=== PATIENT | male | born 1955 | race Caucasian/White ===

== ENCOUNTER 2023-02-06 20:01 | Emergency (ER) | payer OTHER, SELFPAY ==
--- NOTE | ~2023-02-06 | CT_ITS ---
EXAMINATION: CT cervical spine wo con DATE: 02/06/2023 20:41 INDICATION: Status post fall. Seizure. TECHNIQUE: Computed tomography (CT) of the cervical spine was performed without intravenous contrast. The dose-length product was 262 mGy-cm. There is diffuse idiopathic skeletal hyperostosis (DISH) of the cervical spine. COMPARISON: None FINDINGS: There are linear radiodensities of the left upper lobe which may represent atelectasis/scar ring or developing pneumonia. There is atherosclerosis of the carotid arteries. There is significant loss of disc height at all cervical spine levels. There is degenerative anterolisthesis at C2-3 with retrolisthesis at C3-4 and C4-5. There is multilevel endplate degenerative change. There is advanced multilevel uncinate hypertrophy. Mild levoscoliosis of the cervical spine. No significant paraspinal soft tissue abnormality. No acute fracture or traumatic malalignment. IMPRESSION: 1. No acute abnormality of the cervical spine. 2: Severe cervical spondylosis. 3: Linear infiltrates of the left upper lobe which may represent atelectasis/scarring or atypical pne umonia. Reviewed, dictated and finalized at location A. IMPRESSION: 1. No acute abnormality of the cervical spine. 2: Severe cervical spondylosis. 3: Linear infiltrates of the left upper lobe which may represent atelectasis/sc arring or atypical pneumonia.
--- NOTE | ~2023-02-06 | CT_ITS ---
EXAMINATION: CT brain wo con DATE: 02/06/2023 20:41 INDICATION: Seizure. Altered mental status. TECHNIQUE: Computed tomography (CT) of the head was performed without intravenous contrast. The dose- length product was 681.00 mGy-cm. Automated exposure control and iterative reconstruction technique w ere employed. COMPARISON: None FINDINGS: Generalized atrophy. Chronic right frontal lobe infarct infarction. There are scattered mod erate periventricular and subcortical white matter changes, most likely related to small vessel ische bertha disease (microangiopathy). There is intracranial atherosclerosis. No acute intracranial infarctio n, hemorrhage, mass or mass effect. Paranasal sinuses and mastoids are pneumatized. IMPRESSION: 1. No acute intracranial abnormality. 2: Chronic right frontal lobe infarction. 3: Chronic age-related findings. Reviewed, dictated and finalized at location A.
--- NOTE | ~2023-02-06 | XR_ITS ---
XR chest 1V portable 02/06/2023 21:09 Indication: Seizure. Fall. Altered mental status. Procedure: AP portable chest Comparison: No prior studies for comparison. Findings: Heart size normal. There are linear infiltrates of the left upper and mid lung. Small left pleural effusion. There are healed left rib fractures. Right lung clear. There are severe degenerativ e changes of the glenohumeral joints. There are healed right rib fractures. Impression: 1: Linear infiltrates of the left lung peripherally, most likely atelectasis/scarring. Atypical pneum onia is less favored. Reviewed, dictated and finalized at location A. Impression: 1: Linear infiltrates of the left lung peripherally, most likely atelectasis/sc arring. Atypical pneumonia is less favored.
[2023-02-06 20:02] VITALS: BP 159/96; PULSE 89; RESP 19; TEMP 36.5; O2SAT 98
--- NOTE | 2023-02-06 20:24 | ED.SEIZURE ---
HPI - Seizure General Chief Complaint: Seizure Stated Complaint: seizure Time Seen by Provider: 02/06/23 20:16 History of Present Illness HPI Narrative: Patient with history of Wernicke's encephalopathy, alcohol use disorder, seizures, presents after he had a seizure at his facility, fell and hit his head. He is currently confused and A&O x1. Review of Systems Review of Systems: ROS unobtainable: Yes unobtainable due to medical condition and unobtainable due to mental status PMFSH Past Medical History Medical History (Updated 02/06/23 @ 22:17 by Marce Garcia MD) Alcohol use disorder in remission Seizure Wernicke's encephalopathy Exam Narrative: EXAMINATION OF ORGAN SYSTEMS/BODY AREAS: Constitutional: Vital signs per nursing GENERAL:[No acute distress, non-toxic appearing.] HEAD: Normal with no signs of head trauma. EYES: EOMI, conjunctiva normal, PERRL ENT: 2.5 cm laceration to right forehead LUNGS: Nonlabored breathing. HEART: [Regular rate and rhythm] ABD: [Soft], [nontender to palpation] EXT: No obvious signs of deformity/injury SKIN: Laceration to right forehead NEURO: [Alert. Draws back all extremities to painful stimuli] Course Vital Signs Vital signs: Vital Signs Temperature 97.7 F 02/06/23 20:02 Pulse Rate 89 02/06/23 20:02 Respiratory Rate 19 02/06/23 20:02 Blood Pressure 159/96 H 02/06/23 20:02 Pulse Oximetry 98 02/06/23 20:02 Oxygen Delivery Room Air 02/06/23 20:02 Temperature 97.7 F 02/06/23 20:02 Pulse Rate 89 02/06/23 20:02 Respiratory Rate 19 02/06/23 20:02 Blood Pressure 159/96 H 02/06/23 20:02 Pulse Oximetry 98 02/06/23 20:02 Oxygen Delivery Room Air 02/06/23 20:02 Procedures Laceration Laceration 1: Date: 02/06/23 Time: 22:12 Site: face Side (If applicable): right Size (cm): 2.5 Description: linear Depth: simple, single layer Local Anesthetic: lidocaine 1% Amount of anesthesia used (mL): 2 Pre-repair: wound explored and irrigated ====== Skin Level ====== Skin layer closed with: vicryl Size (cm): 5-0 Number of sutures: 3 Technique: simple, interrupted ====== Subcutaneous Layer ====== ====== Muscle Layer ====== ====== Tendon Layer ====== Nerve Block Nerve Block 1: Nerve block date: 02/06/23 Nerve block time: 22:12 Local Anesthetic: lidocaine 1% Amount of anesthesia used (mL): 2 Side: right Nerve Blocks: other (supraorbital block) Procedure Successful: Yes Patient Tolerated Procedure: well and no complications Complications: none MDM - Seizure MDM Narrative Medical decision making narrative: 67-year-old presenting with breakthrough seizures occurring today. Accu-Chek is normal. Seizure precautions are initiated. CT head and C-spine obtained given trauma, these are negative for acute abnormality. Laceration is cleaned here, irrigated, nerve block performed and closed with absorbable sutures (see proc note) Patient now back to baseline, stating he wants to go home. Answering questions. He has remained stable in the emergency department for a period of observation without any recurrence of the symptoms and was discharged in stable condition with return precautions and outpatient follow-up. Lab Data 02/06/23 20:52 02/06/23 20:52 Labs: Lab Results 02/06/23 02/06/23 Range/Units 20:52 21:38 WBC 6.9 (4.5-10.0) K/mm3 RBC 3.51 L (4.6-6.20) M/mm3 Hgb 11.6 L (14.0-18.0) g/dL Hct 34.3 L (42.0-52.0) % MCV 97.7 (80-100) fl MCH 33.0 (26-34) pg MCHC 33.8 (32-36) g/dl RDW 12.4 (11.5-14.5) % Plt Count 327 (150-375) k/mm3 MPV 9.2 (7.4-10.4) fl Immature Gran % (Auto) 0.3 (0-0.5) % Neut % (Auto) 62.7 (45.5-73.1) % Lymph % (Auto) 23.7 (18.3-44.2) % [place] % (Auto) 10.0 H (2.6-8.5) % E
[2023-02-06 21:09] LABS: Basophils Absolute Auto 0.1 K/mm3 (0.0-0.1); Basophils Percent Auto 0.7 % (0.2-1.2); Eosinophils Absolute Auto 0.2 K/mm3 (0-0.3); Eosinophils Percent Auto 2.6 % (0-4.4); Hematocrit 34.3 % (42.0-52.0); Hemoglobin 11.6 g/dL (14.0-18.0); Immature Granulocyte Absolute 0.02 K/mm3 (0.00-0.031); Immature Granulocyte Percent A 0.3 % (0-0.5); Immature Platelet Fraction Pct 2.8 % (0.9-11.2); Lymphocytes Absolute Auto 1.64 K/mm3 (0.9-3.2); Lymphocytes Percent Auto 23.7 % (18.3-44.2); Mean Corpuscular HGB Conc 33.8 g/dl (32-36); Mean Corpuscular Volume 97.7 fl (80-100); Mean Platelet Volume 9.2 fl (7.4-10.4); Monocytes Absolute Auto 0.7 K/mm3 (0.1-0.6); Neutrophils Absolute Auto 4.4 K/mm3 (1.3-6.7); Neutrophils Percent Auto 62.7 % (45.5-73.1); Platelet Count Result 327 k/mm3 (150-375); Red Blood Count 3.51 M/mm3 (4.6-6.20); Red Cell Distribution Width 12.4 % (11.5-14.5); White Blood Count 6.9 K/mm3 (4.5-10.0)
[2023-02-06 21:15] LABS: Alanine Aminotransferase 44 U/L (6-50); Albumin Level 4.3 g/dL (3.5-5.1); Alkaline Phosphatase 64 U/L (38-126); Anion Gap 8 mmol/L (8-16); Aspartate Amino Transferase 53 U/L (17-59); Bilirubin,Total 0.7 mg/dL (0.2-1.3); Blood Urea Nitrogen 13 mg/dL (9-20); Calcium 8.6 mg/dL (8.4-10.2); Carbon Dioxide 27 mmol/L (22-30); Chloride 103 mmol/L (98-107); Estimated Glomerular Filt Rate 32; Ethanol < 10 mg/dL (<10); Glucose 121 mg/dL (65-110); Potassium 3.9 mmol/L (3.4-5.0); Sodium 138 mmol/L (137-145)
[2023-02-06 21:17] LABS: INR 1.1; Prothrombin Time 14.7 Seconds (11.1-14.7)
[2023-02-06 21:18] LABS: Partial Thromboplastin Time 22.8 SECONDS (22.3-36.8)
[2023-02-06 21:52] LABS: Appearance Urine Clear (Clear); Bacteria Urine None Seen /hpf; Bilirubin Urine Negative (Negative); Blood Urine 2+ (Negative); Color Urine Yellow (Yellow); Glucose Urine UA Negative (Negative); Ketones Urine Negative (Negative); Leukocyte Esterase Ur 1+ LEU/UL (Negative); Nitrate Urine Negative (Negative); Protein Urine Trace mg/dL (Negative); RBC Urine 21-50 /hpf (0-2); Specific Grav Ur 1.017 (1.001-1.035); Squamous Epithelial Cell Urine None seen /hpf (Few); WBC Urine 21-50 /hpf; pH Urine 5.5 (5.0-9.0)
[2023-02-06 21:57] LABS: Add Urine Microscopic? YES
[2023-02-06 22:01] LABS: Amphetamine Screen Urine Negative (Negative); Barbiturate Screen Urine Negative (Negative); Benzodiazepines Screen Urine Negative (Negative); Cannabinoid Screen Urine Positive (Negative); Cocaine Screen Urine Negative (Negative); Methadone Screen Urine Negative (Negative); Opiate Screen Urine Negative (Negative); Phencyclidine Screen Urine Negative (Negative)
[2023-02-06] MEDS: LIDOCAINE HCL 1% LOCAL INJ 10 ML VIAL (22:18)
== END 2023-02-06 23:00 ==
PROVIDERS: Emergency Provider Emergency Medicine; PCP Internal Medicine
DX: R56.9 Unspecified convulsions (principal); S01.81XA Laceration without foreign body of other part of head, initial encounter; E51.2 Wernicke's encephalopathy; W18.39XA Other fall on same level, initial encounter
CPT/HCPCS: 12011; 36415; 70450; 71045; 72125; 80053; 80307; 81001; 85025; 85055; 85610; 85730; 87077; 87086; 87088; 99284

== ENCOUNTER 2024-11-13 12:45 | Emergency (ER) | payer MEDICAID, SELFPAY ==
--- NOTE | ~2024-11-13 | CT_ITS ---
EXAMINATION: CT chest abdomen pelvis wo con DATE: 11/13/2024 16:28 INDICATION: Evaluation for loculated pneumothorax vs hernia . TECHNIQUE: Computed tomography (CT) of the chest, abdomen, and pelvis was performed without intraveno us contrast. Automated exposure control and iterative reconstruction technique were employed. The dos e-length product was 540.71 mGy-cm. COMPARISON: X-ray chest, same date FINDINGS: CHEST: Thoracic aorta: No significant dilation. Mild atherosclerotic calcification. Lung parenchyma and airways: Calcified left upper lobe granuloma. Scarring in the left upper and lowe r lobes. Patent airways. Thoracic inlet, axillae and chest wall: Subcentimeter calcified right thyroid nodule which requires n o additional evaluation at this time. No soft tissue mass. No axillary lymphadenopathy. Mediastinum: Enlarged superior mediastinal lymph node. Calcified right hilar nodes. Heart and pericardium: Mitral and aortic valve calcification. Coronary artery calcifications: Moderate. Pleura: Mild left pleural thickening. Thoracic bones: No acute osseous finding in the chest. Old bilateral rib fractures. Severe degenerati ve change in the shoulders. ABDOMEN/PELVIS: Liver: Nodular liver border Biliary/Gallbladder: Gallbladder is normal. No bile duct dilation. Pancreas: No mass or duct dilation. Spleen: Normal. Adrenals:No mass. Kidneys: No suspicious mass, obstructing stone, or hydronephrosis. Punctate nonobstructing left renal calcifications. GI tract: No small or large bowel dilation. Normal appendix. Mesentery/Peritoneum: No ascites, mass, or free air. Retroperitoneum: No mass Atherosclerotic calcifications of intra-abdominal arterial vessels. Pelvis: Moderate bladder wall thickening. Prostatomegaly. Soft Tissues: Small uncomplicated fat-containing umbilical and bilateral inguinal hernias Abdominopelvic bones: No acute osseous finding in the abdomen/pelvis. Degenerative changes in the sp ine, hips, and pubic symphysis. Partial L5 sacralization on the left. IMPRESSION: No CT evidence of loculated pneumothorax, bullae, or diaphragmatic hernia. Mild left pleural and parenchymal scarring. Superior mediastinal lymphadenopathy. Cirrhotic liver changes. Moderate urinary bladder wall thickening may be secondary to cystitis or outlet obstruction from pros tatomegaly. Reviewed, dictated and finalized at location K. IMPRESSION: No CT evidence of loculated pneumothorax, bullae, or diaphragmatic hernia. Mild left pleural and parenchymal scarring. Superior mediastinal lymphadenopathy. Cirrhotic liver changes. Moderate urinary bladder wall thickening may be secondary to cystitis or outlet obstruction from prostatomegaly.
--- NOTE | ~2024-11-13 | CT_ITS ---
EXAMINATION: CT brain wo con DATE: 11/13/2024 13:17 INDICATION: Altered mental status TECHNIQUE: Computed tomography (CT) of the head was performed without intravenous contrast. Sagittal and coronal reconstructions were performed. The mA was adjusted according to patient size. Iterative reconstruction technique was employed. The dose-length product was 605.33 mGy-cm. COMPARISON: head CT dated 02/06/23 FINDINGS: No acute intracranial hemorrhage, acute infarction or abnormal extra axial fluid collection. Stable a ppearance of moderate scattered white matter hypoattenuation most prominent in the right frontal lobe consistent with chronic small vessel ischemic disease. Symmetric prominence of the sulci consistent with mild age-appropriate diffuse cerebral volume loss. Ventricles are normal and symmetric. No mass/ mass effect. Mild mucosal thickening in the right sphenoid sinus. The orbits and mastoid air cells ar e normal. Intracranial calcified cerebral atherosclerosis is noted. IMPRESSION: 1. Age-related changes including mild diffuse volume loss and moderate scattered white matter hypoatt enuation consistent with chronic small vessel ischemic disease. No acute intracranial process. Reviewed, dictated and finalized at location B. IMPRESSION: 1. Age-related changes including mild diffuse volume loss and moderate scattere d white matter hypoattenuation consistent with chronic small vessel ischemic di sease. No acute intracranial process.
--- NOTE | ~2024-11-13 | XR_ITS ---
XR chest 2V Ordering provider: Cate Chandler APRN History: 69 years Male with . cough . Comparison: February 06, 2023 FINDINGS: MEDIASTINUM: The cardiac silhouette is not enlarged. LUNGS: No infiltrates. Lucency is seen in the left costophrenic angle which may be loculated pneumoth orax versus emphysematous bulla although this likely.. Air-fluid level is also possible with possible effusion. The lateral view shows lucency anteriorly which may represent a bowel herniation. CT evalu ation advised. OTHER: No free air under the diaphragm. Degenerative changes of the spine. Dextroscoliosis. 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 IMPRESSION: Lucency in the left costophrenic angle which may be loculated pneumothorax versus herniated bowel jer arianna emphysematous bulla. Lucency is seen anteriorly in the lateral view which may represent a herniat ed bowel loop. CT evaluation advised. Reviewed, dictated and finalized at location A. IMPRESSION: Lucency in the left costophrenic angle which may be loculated pneumothorax vers us herniated bowel versus emphysematous bulla. Lucency is seen anteriorly in th e lateral view which may represent a herniated bowel loop. CT evaluation advise g[place]
[2024-11-13 12:58] VITALS: BP 122/68; PULSE 71; RESP 20; TEMP 36.4; O2SAT 99
--- NOTE | 2024-11-13 13:04 | ECG_ITS ---
Test Date: 2024-11-13 13:53:05 Measurements Intervals [place] Rate: 62 P: 78 MT: 169 QRS: -55 QRSD: 91 T: 59 QT: 384 QTc: 391 Interpretive Statements SINUS RHYTHM LEFT ANTERIOR FASCICULAR BLOCK [QRS AXIS <= -45, QR IN I, RS IN II] POSSIBLE ANTERIOR MYOCARDIAL INFARCTION , OF INDETERMINATE AGE [30 ms Q WAVE IN V3/V4, OR R < 0.2 mV IN V4] No previous ECG available for comparison Electronically Signed On 11-14-2024 15:37:44 CDT by Thang Santana M.D.
--- NOTE | 2024-11-13 13:04 | ED_ITS ---
HPI - Altered Mental Status General Chief Complaint: Altered Mental Status <Cate Chandler APRN - Last Filed: 11/13/24 13:07> Stated Complaint: ams/slow to respond after smoking marijuana <Cate Chandler APRN - Last Filed: 11/13/24 13:07> Time Seen by Provider: 11/13/24 12:55 <Cate Chnadler APRN - Last Filed: 11/13/24 13:07> Focused HPI: Patient is 69-year-old male who presents to the ER with altered mental status following marijuana use. He is a poor historian is unable to provide a strong history. Patient does endorse a history of hypertension. He denies any chest pain, abdominal pain, neck pain, headache, but does not endorse a pain in my rear. Patient was unable to explain whether not this was a chronic issue or spoken in jest. GENERAL: Well-appearing, well-nourished, and in no acute distress. HEAD: Normocephalic, atraumatic. CHEST: Clear to auscultation. ?No respiratory distress. HEART: Regular rate and rhythm.? NEURO: ?Alert and oriented x3. Patient screened in triage and initial orders placed.? ?Additional care and disposition to be based upon?diagnostic testing and treatment. <Cate Chandler APRN - Last Filed: 11/13/24 13:07> History of Present Illness HPI narrative: I agree with the above HPI <Jermaine Perales MD - Last Filed: 11/13/24 21:41> Related Data Allergies/Adverse Reactions: Allergies Allergy/AdvReac Type Severity Reaction Status Date / Time No Known Allergies Allergy Verified 11/13/24 17:06 <Cate Chandler APRN - Last Filed: 11/13/24 13:07> Review of Systems 2 Review of Systems: All systems reviewed & are unremarkable except as noted in HPI and below <Jermaine Perales MD - Last Filed: 11/13/24 21:41> PMFSH Past Medical History Medical History: Medical History (Updated 11/13/24 @ 16:57 by Jermaine Perales MD) Seizure Wernicke's encephalopathy Alcohol use disorder in remission <Cate Chandler APRN - Last Filed: 11/13/24 13:07> Exam 2 Narrative: APPEARANCE: Well appearing, no pain, no distress, well-nourished. HEAD: normocephalic, atraumatic. EYES: PERRLA/EOMI, conjunctivae clear. NOSE: Normal no drainage EARS:TMS clear with good light reflex. THROAT: Pharynx clear, no exudate. NECK: Supple. No adenopathy, no masses. RESPIRATORY: Airway patent, respirations nonlabored. Clear to auscultation bilaterally, no rales, rhonchi, wheezing. CARDIOVASCULAR: Regular rate and rhythm without murmurs rubs or gallops. ABDOMINAL: Soft, nontender, nondistended, normal bowel sounds MUSCULOSKELETAL: Moves all extremities. Strength/ROM intact, No edema, No calf tenderness. NEURO: Alert. Cranial nerves II through XII intact. Good gait. Good coordination SKIN: Warm, dry. Normal Color <Jermaine Perales MD - Last Filed: 11/13/24 21:41> Course Vital Signs Vital signs: Vital Signs Temperature 97.6 F 11/13/24 12:58 Pulse Rate 71 11/13/24 12:58 Respiratory Rate 20 11/13/24 12:58 Blood Pressure 122/68 11/13/24 12:58 Pulse Oximetry 99 11/13/24 12:58 Oxygen Delivery Room Air 11/13/24 12:58 Temperature 97.6 F 11/13/24 12:58 Pulse Rate 60 11/13/24 18:05 Respiratory Rate 18 11/13/24 18:05 Blood Pressure 126/76 11/13/24 18:05 Pulse Oximetry 100 11/13/24 18:05 Oxygen Delivery Room Air 11/13/24 15:22 <Cate Chandler APRN - Last Filed: 11/13/24 13:07> Vital Signs Temperature 97.6 F 11/13/24 12:58 Pulse Rate 71 11/13/24 12:58 Respiratory Rate 20 11/13/24 12:58 Blood Pressure 122/68 11/13/24 12:58 Pulse Oximetry 99 11/13/24 12:58 Oxygen Delivery Room Air 11/13/24 12:58 Temperature 97.6 F 11/13/24 12:58 Pulse Rate 60 11/13/24 18:05 Respiratory Rate 18 11/13/24 18:05 Blood Pressure 126/76 11/13/24 18:05 Pulse Oximetry 100 11/13/24 18:05 Oxygen Delivery Room Air 11/13/24 15:22 <Jermaine Perales MD - Last Filed: 11/13/24 21:41> MDM - Altered Mental Status MDM Narrative Medical decision making narrative: 69-year-old male presented emergency department for evaluation for altered mental status. Patient did admit to smoking marijuana to the staff. Patient is currently afebrile with no leukocytosis and hemoglobin of 12.4. INR 1.1. Patient has no acute abnormalities on his CMP UA is negative for infection. Patient had chest x-ray concerning for loculated pneumothorax versus hernia. CT scan was ordered CT showed no evidence of loculated pneumothorax, bullae or diaphragmatic hernia, mild pleural and parenchymal scarring. Superior mediastinal lymphadenopathy. Cirrhotic liver changes. Moderate urinary bladder wall thickening may be secondary cystitis or outlet obstruction. UA showed no evidence of infection. Patient was updated results of his workup is comfortable return back to his care facility. Patient did admit to THC use to staff. On re-evaluation patient appears to be at his expected baseline and denies any complaints. <Jermaine Perales MD - Last Filed: 11/13/24 21:41> Differential Diagnosis Differential diagnosis: Likely alcoholic intoxication, altered mental status, delirium, dementia, hypoglycemia, hyponatremia and subarachnoid hemorrhage <Jermaine Perales MD - Last Filed: 11/13/24 21:41> Lab Data Attestation: I reviewed the patient's lab results. <Jermaine Perales MD - Last Filed: 11/13/24 21:41> Result diagrams: 11/13/24 13:44 11/13/24 14:24 <Cate Chandler APRN - Last Filed: 11/13/24 13:07> Labs: Lab Results 11/13/24 11/13/24 11/13/24 Range/Units 13:43 13:44 14:12 WBC 6.5 (4.5-10.0) K/mm3 RBC 3.75 L (4.6-6.20) M/mm3 Hgb 12.4 L (14.0-18.0) g/dL Hct 36.9 L (42.0-52.0) % MCV 98.4 (80-100) fl MCH 33.1 (26-34) pg MCHC 33.6 (32-36) g/dl RDW 12.5 (11.5-14.5) % Plt Count 370 (150-375) k/mm3 MPV 9.1 (7.4-10.4) fl Immature Gran % (Auto) 0.5 (0-0.5) % Neut % (Auto) 66.7 (45.5-73.1) % Lymph % (Auto) 21.8 (18.3-44.2) % [place] % (Auto) 8.2 (2.6-8.5) % Eos % (Auto) 1.9 (0-4.4) % Baso % (Auto) 0.9 (0.2-1.2) % Lymph # (Auto) 1.41 (0.9-3.2) K/mm3 [place] # (Auto) 0.5 (0.1-0.6) K/mm3 Eos # (Auto) 0.1 (0-0.3) K/mm3 Baso # (Auto) 0.1 (0.0-0.1) K/mm3 Abs Immat Gran (auto) 0.03 (0.00-0.031) K/mm3 Absolute Neuts (auto) 4.3 (1.3-6.7) K/mm3 Absolute Nucleated RBC 0.000 (0.0-0.012) K/mm3 Nucleated RBC % 0.0 (0.0-0.2) % PT 14.4 (11.1-14.7) Seconds INR 1.1 APTT 30.6 (22.3-36.8) Seconds Sodium (137-145) mmol/L Potassium (3.4-5.0) mmol/L Chloride (98-107) mmol/L Carbon Dioxide (22-30) mmol/L Anion Gap (4-12) mmol/L BUN (9-20) mg/dL Creatinine (0.7-1.3) mg/dL Estim Creat Clear Calc ml/min Estimated GFR (59 - ) Glucose (65-110) mg/dL POC Capillary Glucose 114 H (65-105) mg/dl Calcium (8.4-10.2) mg/dL Total Bilirubin (0.2-1.3) mg/dL AST (17-59) U/L ALT (6-50) U/L Alkaline Phosphatase (38-126) U/L Troponin I (0.000-0.034) ng/mL Total Protein (6.3-8.2) g/dL Albumin (3.5-5.1) g/dL TSH (0.465-4.680) uIU/mL Urine Color Yellow (Yellow) Urine Appearance Clear (Clear) Urine pH 7.0 (5.0-9.0) Ur Specific [place] 1.013 (1.001-1.035) Urine Protein Negative (Negative) mg/dL Urine Glucose (UA) Negative (Negative) mg/dL Urine Ketones Negative (Negative) mg/dL Ur Blood (Man) Negative (Negative) Urine Nitrate Negative (Negative) Urine Bilirubin Negative (Negative) Urine Urobilinogen 1.0 (<2.0) mg/dL Leukocyte Esterase Rfl Negative (Negative) PEPITO/UL 03/24/25 Range/Units 14:24 WBC (4.5-10.0) K/mm3 RBC (4.6-6.20) M/mm3 Hgb (14.0-18.0) g/dL Hct (42.0-52.0) % MCV (80-100) fl MCH (26-34) pg MCHC (32-36) g/dl RDW (11.5-14.5) % Plt Count (150-375) k/mm3 MPV (7.4-10.4) fl Immature Gran % (Auto) (0-0.5) % Neut % (Auto) (45.5-73.1) % Lymph % (Auto) (18.3-44.2) % [place] % (Auto) (2.6-8.5) % Eos % (Auto) (0-4.4) % Baso % (Auto) (0.2-1.2) % Lymph # (Auto) (0.9-3.2) K/mm3 [place] # (Auto) (0.1-0.6) K/mm3 Eos # (Auto) (0-0.3) K/mm3 Baso # (Auto) (0.0-0.1) K/mm3 Abs Immat Gran (auto) (0.00-0.031) K/mm3 Absolute Neuts (auto) (1.3-6.7) K/mm3 Absolute Nucleated RBC (0.0-0.012) K/mm3 Nucleated RBC % (0.0-0.2) % PT (11.1-14.7) Seconds INR APTT (22.3-36.8) Seconds Sodium 143 (137-145) mmol/L Potassium 4.1 (3.4-5.0) mmol/L Chloride 106 (98-107) mmol/L Carbon Dioxide 24 (22-30) mmol/L Anion Gap 13 H (4-12) mmol/L BUN 16 (9-20) mg/dL Creatinine 1.48 H (0.7-1.3) mg/dL Estim Creat Clear Calc 40 ml/min Estimated GFR 47 L (59 - ) Glucose 90 (65-110) mg/dL POC Capillary Glucose (65-105) mg/dl Calcium 9.8 (8.4-10.2) mg/dL Total Bilirubin 0.6 (0.2-1.3) mg/dL AST 60 H (17-59) U/L ALT 67 H (6-50) U/L Alkaline Phosphatase 89 (38-126) U/L Troponin I < 0.012 (0.000-0.034) ng/mL Total Protein 9.0 H (6.3-8.2) g/dL Albumin 4.9 (3.5-5.1) g/dL TSH 1.320 (0.465-4.680) uIU/mL Urine Color (Yellow) Urine Appearance (Clear) Urine pH (5.0-9.0) Ur Specific [place] (1.001-1.035) Urine Protein (Negative) mg/dL Urine Glucose (UA) (Negative) mg/dL Urine Ketones (Negative) mg/dL Ur Blood (Man) (Negative) Urine Nitrate (Negative) Urine Bilirubin (Negative) Urine Urobilinogen (<2.0) mg/dL Leukocyte Esterase Rfl (Negative) PEPITO/UL <Cate Chandler, [employer] INSPECTOR - Last Filed: 11/13/24 13:07> Lab Results 11/13/24 11/13/24 11/13/24 Range/Units 13:43 13:44 14:12 WBC 6.5 (4.5-10.0) K/mm3 RBC 3.75 L (4.6-6.20) M/mm3 Hgb 12.4 L (14.0-18.0) g/dL Hct 36.9 L (42.0-52.0) % MCV 98.4 (80-100) fl MCH 33.1 (26-34) pg MCHC 33.6 (32-36) g/dl RDW 12.5 (11.5-14.5) % Plt Count 370 (150-375) k/mm3 MPV 9.1 (7.4-10.4) fl Immature Gran % (Auto) 0.5 (0-0.5) % Neut % (Auto) 66.7 (45.5-73.1) % Lymph % (Auto) 21.8 (18.3-44.2) % [place] % (Auto) 8.2 (2.6-8.5) % Eos % (Auto) 1.9 (0-4.4) % Baso % (Auto) 0.9 (0.2-1.2) % Lymph # (Auto) 1.41 (0.9-3.2) K/mm3 [place] # (Auto) 0.5 (0.1-0.6) K/mm3 Eos # (Auto) 0.1 (0-0.3) K/mm3 Baso # (Auto) 0.1 (0.0-0.1) K/mm3 Abs Immat Gran (auto) 0.03 (0.00-0.031) K/mm3 Absolute Neuts (auto) 4.3 (1.3-6.7) K/mm3 Absolute Nucleated RBC 0.000 (0.0-0.012) K/mm3 Nucleated RBC % 0.0 (0.0-0.2) % PT 14.4 (11.1-14.7) Seconds INR 1.1 APTT 30.6 (22.3-36.8) Seconds Sodium (137-145) mmol/L Potassium (3.4-5.0) mmol/L Chloride (98-107) mmol/L Carbon Dioxide (22-30) mmol/L Anion Gap (4-12) mmol/L BUN (9-20) mg/dL Creatinine (0.7-1.3) mg/dL Estim Creat Clear Calc ml/min Estimated GFR (59 - ) Glucose (65-110) mg/dL POC Capillary Glucose 114 H (65-105) mg/dl Calcium (8.4-10.2) mg/dL Total Bilirubin (0.2-1.3) mg/dL AST (17-59) U/L ALT (6-50) U/L Alkaline Phosphatase (38-126) U/L Troponin I (0.000-0.034) ng/mL Total Protein (6.3-8.2) g/dL Albumin (3.5-5.1) g/dL TSH (0.465-4.680) uIU/mL Urine Color Yellow (Yellow) Urine Appearance Clear (Clear) Urine pH 7.0 (5.0-9.0) Ur Specific [place] 1.013 (1.001-1.035) Urine Protein Negative (Negative) mg/dL Urine Glucose (UA) Negative (Negative) mg/dL Urine Ketones Negative (Negative) mg/dL Ur Blood (Man) Negative (Negative) Urine Nitrate Negative (Negative) Urine Bilirubin Negative (Negative) Urine Urobilinogen 1.0 (<2.0) mg/dL Leukocyte Esterase Rfl Negative (Negative) PEPITO/UL 03/24/25 Range/Units 14:24 WBC (4.5-10.0) K/mm3 RBC (4.6-6.20) M/mm3 Hgb (14.0-18.0) g/dL Hct (42.0-52.0) % MCV (80-100) fl MCH (26-34) pg MCHC (32-36) g/dl RDW (11.5-14.5) % Plt Count (150-375) k/mm3 MPV (7.4-10.4) fl Immature Gran % (Auto) (0-0.5) % Neut % (Auto) (45.5-73.1) % Lymph % (Auto) (18.3-44.2) % [place] % (Auto) (2.6-8.5) % Eos % (Auto) (0-4.4) % Baso % (Auto) (0.2-1.2) % Lymph # (Auto) (0.9-3.2) K/mm3 [place] # (Auto) (0.1-0.6) K/mm3 Eos # (Auto) (0-0.3) K/mm3 Baso # (Auto) (0.0-0.1) K/mm3 Abs Immat Gran (auto) (0.00-0.031) K/mm3 Absolute Neuts (auto) (1.3-6.7) K/mm3 Absolute Nucleated RBC (0.0-0.012) K/mm3 Nucleated RBC % (0.0-0.2) % PT (11.1-14.7) Seconds INR APTT (22.3-36.8) Seconds Sodium 143 (137-145) mmol/L Potassium 4.1 (3.4-5.0) mmol/L Chloride 106 (98-107) mmol/L Carbon Dioxide 24 (22-30) mmol/L Anion Gap 13 H (4-12) mmol/L BUN 16 (9-20) mg/dL Creatinine 1.48 H (0.7-1.3) mg/dL Estim Creat Clear Calc 40 ml/min Estimated GFR 47 L (59 - ) Glucose 90 (65-110) mg/dL POC Capillary Glucose (65-105) mg/dl Calcium 9.8 (8.4-10.2) mg/dL Total Bilirubin 0.6 (0.2-1.3) mg/dL AST 60 H (17-59) U/L ALT 67 H (6-50) U/L Alkaline Phosphatase 89 (38-126) U/L Troponin I < 0.012 (0.000-0.034) ng/mL Total Protein 9.0 H (6.3-8.2) g/dL Albumin 4.9 (3.5-5.1) g/dL TSH 1.320 (0.465-4.680) uIU/mL Urine Color (Yellow) Urine Appearance (Clear) Urine pH (5.0-9.0) Ur Specific [place] (1.001-1.035) Urine Protein (Negative) mg/dL Urine Glucose (UA) (Negative) mg/dL Urine Ketones (Negative) mg/dL Ur Blood (Man) (Negative) Urine Nitrate (Negative) Urine Bilirubin (Negative) Urine Urobilinogen (<2.0) mg/dL Leukocyte Esterase Rfl (Negative) PEPITO/UL <Jermaine Perales MD - Last Filed: 11/13/24 21:41> Imaging Data Radiologist's impression: Impressions Head CT 11/13/24 13:28 IMPRESSION: 1. Age-related changes including mild diffuse volume loss and moderate scattered white matter hypoattenuation consistent with chronic small vessel ischemic disease. No acute intracranial process. Chest X-Ray 11/13/24 13:32 IMPRESSION: Lucency in the left costophrenic angle which may be loculated pneumothorax versus herniated bowel versus emphysematous bulla. Lucency is seen anteriorly in the lateral view which may represent a herniated bowel loop. CT evaluation advised. Chest/Abdomen/Pelvis CT 11/13/24 16:34 IMPRESSION: No CT evidence of loculated pneumothorax, bullae, or diaphragmatic hernia. Mild left pleural and parenchymal scarring. Superior mediastinal lymphadenopathy. Cirrhotic liver changes. Moderate urinary bladder wall thickening may be secondary to cystitis or outlet obstruction from prostatomegaly. <Jermaine Perales MD - Last Filed: 11/13/24 21:41> Discharge Plan Discharge Clinical Impression: Altered mental status <Cate Chandler APRN - Last Filed: 11/13/24 13:07> Patient Disposition: NH Intermediate/Asst Living <Cate Chandler APRN - Last Filed: 11/13/24 13:07> Condition: Stable <Cate Chandler APRN - Last Filed: 11/13/24 13:07> Instructions: Antibiotic Form <Cate Chandler APRN - Last Filed: 11/13/24 13:07> Additional Instructions: Have close follow-up with your primary care physician. If you have any worsening symptoms then please call or return to the emergency department. <Cate Chandler APRN - Last Filed: 11/13/24 13:07> Patient Language: Armenian <Cate Chandler APRN - Last Filed: 11/13/24 13:07> Follow-up/Referrals: Abel,Smiley Chawla MD [Primary Care Provider] - <Cate Chandler APRN - Last Filed: 11/13/24 13:07>
[2024-11-13 13:47] LABS: Glucose Point of Care 114 mg/dl (65-105)
[2024-11-13 13:51] LABS: Basophils Absolute Auto 0.1 K/mm3 (0.0-0.1); Basophils Percent Auto 0.9 % (0.2-1.2); Eosinophils Absolute Auto 0.1 K/mm3 (0-0.3); Eosinophils Percent Auto 1.9 % (0-4.4); Hematocrit 36.9 % (42.0-52.0); Hemoglobin 12.4 g/dL (14.0-18.0); Immature Granulocyte Absolute 0.03 K/mm3 (0.00-0.031); Immature Granulocyte Percent A 0.5 % (0-0.5); Lymphocytes Absolute Auto 1.41 K/mm3 (0.9-3.2); Lymphocytes Percent Auto 21.8 % (18.3-44.2); Mean Corpuscular HGB Conc 33.6 g/dl (32-36); Mean Corpuscular Hemoglobin 33.1 pg (26-34); Mean Corpuscular Volume 98.4 fl (80-100); Mean Platelet Volume 9.1 fl (7.4-10.4); Monocytes Absolute Auto 0.5 K/mm3 (0.1-0.6); Monocytes Percent Auto 8.2 % (2.6-8.5); Neutrophils Absolute Auto 4.3 K/mm3 (1.3-6.7); Neutrophils Percent Auto 66.7 % (45.5-73.1); Platelet Count Result 370 k/mm3 (150-375); Red Blood Count 3.75 M/mm3 (4.6-6.20); Red Cell Distribution Width 12.5 % (11.5-14.5); White Blood Count 6.5 K/mm3 (4.5-10.0)
[2024-11-13 14:09] LABS: INR 1.1; Prothrombin Time 14.4 Seconds (11.1-14.7)
[2024-11-13 14:10] LABS: Partial Thromboplastin Time 30.6 Seconds (22.3-36.8)
--- OUTSIDE RECORDS SUMMARY | 2024-11-13 14:27 | XMS_ITS | Clinical Summary ---
Author Organization [facility] [employer] Address [address] [place] [address] Care Team Providers Care Packaging Supervisor Name Role Phone Unavailable Primary Care Provider Unavailabl e Source Comments [facility],non-owned Affiliates and Associated Physician Practices is amultiple site organization consisting of ambulatory clinics and hospital sitesin [place], [place], [place] and [place]. This disclosure is being madepursuant to the Care Everywhere program and may not contain all information available regarding this patient. Last updated 18.[facility] [employer] Allergies No known active allergies Medications * Be aware that medications may not be up to date on this document. Alwaysverify current medications with the patient. Medication Sig Dispensed Refills Start Date End Date Status divalproex DR (DEPAKOTE) 250 MG tablet Take 3 tablets by mouth 2 times daily 60 tablet 12/07/2017 Active lisinopril (PRINIVIL; ZESTRIL) 20 MG tablet Take 1 tablet by mouth once daily 30 tablet 12/07/2017 Active folic acid (FOLVITE) 1 MG tablet Take 1 tablet by mouth once daily 30 tablet 12/07/2017 Active nicotine (NICODERM CQ) 14 MG/24HR patch Apply 1 patch to skin once daily 30 patch 12/07/2017 Active multivitamin daily (THERAGRAN) tablet Take 1 tablet by mouth once daily 30 tablet 12/07/2017 Active Thiamine HCl 250 MG Take 1 tablet by mouth once daily 30 tablet 12/07/2017 Active Cholecalciferol 2000 UNITS Take 1 tablet by mouth once daily 30 tablet 12/07/2017 Active aspirin EC (ECOTRIN) 81 MG tablet Take 81 mg by mouth once daily Active lactulose (CHRONULAC) 10 GM/15ML solution 20 g Activ e melatonin 3 MG tablet Act mariusz multivitamins (ONE A DAY) capsule Take 1 capsule by mouth once daily Active Active Problems Problem Noted Date Diagnosed Date Nonintractable epilepsy without status epileptic us 12/01/2017 Immunizations Name Administration Dates Next Due INFLUENZA VACCINE, QUADR. (F LUZONE; FLULAVAL; FLUARIX; AFLURIA QUADRIVALENT; 6MO+), 0.5 ML (IIV4) 12/05/2017 Social History Tobacco Use Types Packs/Day Years Used Date Smoking Tobacco: Every Day Cigarettes 1 10 Smokeless Tobacco: Former Chew Quit: 2015 Tobacco Cessation:Counseling Given: Yes Alcohol Use Standard Drinks/Week Comments Yes 42 (1 standard drink = 0.6 oz pu re alcohol) Sex and Gender Information Value Date Recorded Sex Assigned at Not on file Gender Identity Not on file Sexual Orientation Not on file Last Filed Vital Signs Vital Sign Reading Time Taken Comments Blood Pressure 108/74 09/01/2021 10:00 AM DRY CANS BACK TENDER Pulse 65 09/01/2021 10:00 AM DRY CANS BACK TENDER Temperature 36.7 C (98.1 F) 09/01/2021 10:00 AM DRY CANS BACK TENDER Respiratory Rate 18 12/07/2017 8:00 AM CDT Oxygen Saturation 99% 09/01/2021 10:00 AM DRY CANS BACK TENDER Inhaled Oxygen Concentration - - Weight 60.8 kg (134 lb) 09/01/2021 10:00 AM DRY CANS BACK TENDER Height 170.2 cm (5' 7 ) 09/01/2021 10:00 AM DRY CANS BACK TENDER Body Mass Index 20.99 09/01/2021 10:00 AM DRY CANS BACK TENDER Plan of Treatment Health Maintenance Due Date Last Done Comments COLOGUARD (AGES 45-75) - COL ON CA SCREENING 1955 COLON MONITORING 1955 COLONOSCOPY - COLON CA SCREENING 1955 CT COLONOGRAPHY - COLON CA SCREENING 1955 Colorectal Cancer Screening 1955 FIT - COLON CA SCREENING 1955 FLEX SIG - COLON CA SCREENING 1955 LIPID TESTING 1955 HEPATITIS C SCREENING 07/06/1973 DTAP/TDAP/TD VACCINES (1 - Tdap) 1974 PNEUMOCOCCAL VACCINE 50+ (1 of 1 - PCV) 2005 ZOSTER VACCINE (1 of 2) 2005 AAA SCREENING 2020 COVID-19 VACCINE ( - 2023-2 5 season) 2024 INFLUENZA VACCINE (#1) 2024 12/05/2017 DEPRESSION SCREENING 08/23/2024 Respiratory Syncytial Virus (RSV) Vaccine Pt: or over 60 yrs (1 - 1-dose 75+ series) 2030 HEPATITIS B VACCINE Aged Out No longe r eligible based on patient's age to complete this topic HIB VACCINE Aged Out No longer eligi ble based on patient's age to complete this topic HPV VACCINE Aged Out No longer eligi ble based on patient's age to complete this topic MENINGOCOCCAL (Group B) VACC INE SHARED DECISION-MAKING Aged Out No longer eligibl e based on patient's age to complete this topic MENINGOCOCCAL GROUPS A/C/Y/W VACCINE Aged Out No longer eligible b ased on patient's age to complete this topic Advance Directives * Full Code (Latest Code Status on File) Date Activated Date Inactivated Comments 12/01/2017 5:52 PM 12/07/2017 12:03 PM
--- OUTSIDE RECORDS SUMMARY | 2024-11-13 14:27 | XMS_ITS ---
Author Organization [facility] Care Team Providers Care Plant Biology Professor Name Role Phone Tj, Mateo Unavailable Unavailable Ampadu, Yaw Unavailable Unavailable Ampadu, Valeria Unavailable Unavailable Allergies and adverse reactions No Known Allergies Care Team Name Role Address Phone Organization Dates [facility]in [facility] [address] [place], [address], [place] (Office): : [facility] [place] 02/24/2021 - 12/01/2021 Mateo Habib Attending Physician [facility] [place], [address], [place] (Office): [facility] [place] 02/24/2021 - 12/01/2021 Valeria Perrin Attending Physician [address], [place], [facility], [place] (Office): : [facility] [place] 02/24/2021 - 12/01/2021 Immunizations Immunization Status Vaccine Details Vaccine Code CodeSystem Date Notes Influenza completed Influenza, high-dose, split virus, quadrivalent, injectable, preservative free lotNumber: [id number] expiry: 01/29/2021 Mfg: Flucelvax Quadrivalent Given 0.5 ml Left Deltoid intradermally 197 CVX created date: 05/16/2020 consent date: 05/16/2020 administer ed date: 05/16/2020 Influenza completed Influenza, high-dose, split virus, quadrivalent, injectable, preservative free lotNumber: [id number] expiry: 02/20/2020 Mfg: AFLURIA QUADRIVALANT Given 0.5 ml Left Deltoid intramuscularly 197 CVX created date: 06/09/2019 consent date: 06/09/2019 administer ed date: 06/09/2019 Influenza completed Influenza, high-dose, split virus, quadrivalent, injectable, preservative free lotNumber: [id number] expiry: 02/19/2019 Mfg: Sanofi Pasteur Given 0.5 ml Left Deltoid intramuscularly 197 CVX created date: 09/29/2018 consent date: 09/29/2018 administer ed date: 09/29/2018 Educated by [facility] on 09/29/2018 TB 1 Step Mantoux (PPD) completed tuberculin skin test; unspecified formulation lotNumber: [id number] expiry: 10/20/2021 Mfg: aplisol Given 0.1 ml intradermally 98 CVX created date: 07/30/2021 consent date: 07/30/2021 administer ed date: 07/30/2021 TB 1 Step Mantoux (PPD) completed tuberculin skin test; unspecified formulation lotNumber: [id number] expiry: 01/11/2022 Mfg: Tubersol Given 0.1 ml Right Forearm intradermally 98 CVX created date: 03/05/2020 consent date: 03/05/2020 administer ed date: 03/05/2020 TB 1 Step Mantoux (PPD) completed tuberculin skin test; unspecified formulation lotNumber: [id number] expiry: 09/23/2019 Mfg: Par [employer] Given 0.1 ml Right Forearm intradermally 98 CVX created date: 12/09/2018 consent date: 12/09/2018 administer ed date: 12/09/2018 yearly TB DPT completed created date: 09/13/2018 administer ed date: 08/03/2018 per h and p from ct iniguez on 08/03/18 no date specified SARS-COV-2 (COVID-19) completed SARS-COV-2 (COVID-19) vaccine, mRNA, spike protein, LNP, preservative free, 25 mcg/0.25 mL dose lotNumber: [id number] expiry: 12/21/2020 Mfg: pfizer Given 0.3 ml Right Deltoid intramuscularly Step 2 of Multi-step with next step required 311 CVX created date: 10/25/2020 consent date: 10/25/2020 administer ed date: 09/26/2020 SARS-COV-2 (COVID-19) completed SARS-COV-2 (COVID-19) vaccine, mRNA, spike protein, LNP, preservative free, 25 mcg/0.25 mL dose lotNumber: [id number] expiry: 11/10/2020 Mfg: pfizer Given 0.3 ml Left Deltoid intramuscularly Step 1 of Multi-step with next step required 311 CVX created date: 10/25/2020 consent date: 10/25/2020 administer ed date: 09/05/2020 COVID-19 Pfizer Booster completed SARS-COV-2 (COVID-19) vaccine, mRNA, spike protein, LNP, preservative free, 30 mcg/0.3mL dose lotNumber: [id number] expiry: 11/07/2021 Mfg: pfizer Given 0.3 ml intramuscularly 208 CVX created date: 10/16/2021 consent date: 10/16/2021 administer ed date: 10/16/2021 Mental Status Section Date Assessment Total Score Description 12/01/2021 BIMS 11 moderate cognit mariusz impairment CAM 0 No delirium ind icated PHQ-9 06 mild depression 10/14/2021 BIMS 11 moderate cognit mariusz impairment CAM 3 Delirium indica david PHQ-9 06 mild depression Problems Problem # Description Date of onset Resolved Date Code CodeSystem Concern Status 1 NEED FOR ASSISTANCE WITH PERSONAL CARE 07/23/[address] active 2 WEAKNESS 07/23/[address] active 3 NEED FOR ASSISTANCE WITH PERSONAL CARE 04/11/20 21 07/23/[address] completed 4 WEAKNESS 04/11/20 21 07/23/[address] completed 5 COGNITIVE COMMUNICATION DEFICIT 07/16/20 20 07/23/[address] completed 6 OTHER SYMBOLIC DYSFUNCTIONS 07/16/20 20 07/23/[address] completed 7 DIFFICULTY IN WALKING, NOT ELSEWHERE CLASSIFIED 10/27/19 20 05/16/[address] completed 8 UNSTEADINESS ON FEET 10/27/19 20 05/16/[address] completed 9 WEAKNESS 10/27/19 20 05/16/[address] completed 10 UNSPECIFIED PSYCHOSIS NOT DUE TO A SUBSTANCE OR KNOWN PHYSIOLOGICAL CONDITION 09/25/[address] active 11 ALCOHOL USE, UNSPECIFIED WITH ALCOHOL-INDUCED PSYCHOTIC DISORDER, UNSPECIFIED 08/02/[address] active 12 MAJOR DEPRESSIVE DISORDER, RECURRENT, UNSPECIFIED 06/15/[address] active 13 CONTRACTURE OF MUSCLE, LEFT SHOULDER 05/01/20 19 08/17/[address] completed 14 CONTRACTURE OF MUSCLE, RIGHT SHOULDER 05/01/20 19 08/17/[address] completed 15 CONTRACTURE, LEFT KNEE 05/01/20 19 08/17/[address] completed 16 WEAKNESS 05/01/20 19 08/17/[address] completed 17 OTHER ABNORMALITIES OF GAIT AND MOBILITY 02/03/20 19 08/17/[address] completed 18 OTHER LACK OF COORDINATION 02/03/20 19 08/17/[address] completed 19 UNSTEADINESS ON FEET 02/03/20 19 08/17/[address] completed 20 UNSPECIFIED BACTERIAL PNEUMONIA 09/08/19 19 06/26/[address] completed 21 ALCOHOL DEPENDENCE, IN REMISSION 08/03/[address] active 22 COGNITIVE COMMUNICATION DEFICIT 08/03/20 18 08/17/[address] completed 23 GASTRO-ESOPHAGEAL REFLUX DISEASE WITHOUT ESOPHAGITIS 08/03/[address] active 24 NICOTINE DEPENDENCE, UNSPECIFIED, UNCOMPLICATED 08/03/[address] active 25 OTHER SEIZURES 08/03/[address] active 26 VITAMIN D DEFICIENCY, UNSPECIFIED 08/03/[address] active 27 WERNICKE'S ENCEPHALOPATHY 08/03/[address] active Reason for Referral No Reasons for Referral Entered Social History Social History Observation Description Start Date End Date Code Code System Current Smoking Status Tobacco smoking consumption unknown 397387334 SNOMED CT Sex Assigned At Male 1955 67009-9 [facility] Vital Signs Code Code System Vitals Name Values and Units Timing Information 90404-4 [facility] Pain Level Value=0.0 11/28/2021 03788-3 [facility] Weight Hxuxl=734.0 Units=Lbs 01/2022 9279-1 [facility] Respiratory Rate Value=20.0 Units=/m in 11/26/2021 8462-4 [facility] Blood Pressure-Diastolic Value=80 Un its=mmHg 11/26/2021 8480-6 [facility] Blood Pressure-Systolic Zacrf=787 Un its=mmHg 11/26/2021 8310-5 [facility] Body Temperature Value=97.0 Units= F 11/26/2021 8867-4 [facility] Heart rate Value=80.0 Units=/min 01/2022 19762-8 [facility] O2 % dC Oximetry Value=98.0 Units= % 11/26/2021 2339-0 [facility] Blood Sugar Zmzpp=008.0 Units=mg/dL 08/07/2021 8302-2 [facility] Height Value=67.0 Units=Inches 09/08/2018
--- OUTSIDE RECORDS SUMMARY | 2024-11-13 14:27 | XMS_ITS | CONTINUITY OF CARE DOCUMENT ---
Author Name mahin stockton Address Unknown Organization [facility] Address [address] [place] [address] Phone [phone] Care Team Providers Care Earth Sciences Professor Name Role Phone Flex Leone MD Unavailable DAYNE CALDERON, ABIEL Unavailable INSURANCE PROVIDERS Payer name Policy type / Coverage type Kenny red constitution party ID [facility] Medicaid [id number]
[2024-11-13 14:32] LABS: Add Urine Microscopic? NO; Appearance Urine Clear (Clear); Bilirubin Urine Negative (Negative); Blood Urine Negative (Negative); Color Urine Yellow (Yellow); Glucose Urine UA Negative (Negative); Ketones Urine Negative (Negative); Leukocyte Esterase Ur Negative LEU/UL (Negative); Nitrate Urine Negative (Negative); Protein Urine Negative (Negative); Specific Grav Ur 1.013 (1.001-1.035)
[2024-11-13 14:54] LABS: Alanine Aminotransferase 67 U/L (6-50); Albumin Level 4.9 g/dL (3.5-5.1); Alkaline Phosphatase 89 U/L (38-126); Anion Gap 13 mmol/L (4-12); Aspartate Amino Transferase 60 U/L (17-59); Bilirubin,Total 0.6 mg/dL (0.2-1.3); Blood Urea Nitrogen 16 mg/dL (9-20); Calcium 9.8 mg/dL (8.4-10.2); Carbon Dioxide 24 mmol/L (22-30); Chloride 106 mmol/L (98-107); Estimated CRCL calculation 40 ml/min; Estimated Glomerular Filt Rate 47; Glucose 90 mg/dL (65-110); Potassium 4.1 mmol/L (3.4-5.0); Sodium 143 mmol/L (137-145)
[2024-11-13 14:57] LABS: Troponin I < 0.012 ng/mL (0.000-0.034)
[2024-11-13 15:22] VITALS: O2SAT 100
[2024-11-13 15:25] VITALS: BP 118/84; PULSE 66; RESP 16; O2SAT 100
[2024-11-13 17:14] VITALS: BP 152/88; PULSE 61; RESP 18; O2SAT 99
--- OUTSIDE RECORDS SUMMARY | 2024-11-13 17:40 | XMS_ITS | Continuity of Care Document ---
Author Name [facility] Organization [facility] Care Team Providers Care Earth Auger Operator Name Role Phone [facility] Unavailable Unavailable Problems Combined list of problems from Department of Defense and [facility] Affairs facilities. It does not include entries that were removed or entered in error. Problem Status Onset Date Problem Type Date of Resolution Comments Source Adjustment Disorder W/Depressed Mood Active Condition [facility] Alcohol Abuse Active Condition [facility] Asthenia Active Condition [facility] Chronic hepatitis C without mention of hepatic coma (ICD-9-CM 070.54) Active Condition [facility] Cocaine abuse, episodic use (ICD-9-CM 305.62) Active Condition [facility] Condyloma Accuminatum Active Condition [facility] Disorders of bursae and tendons in shoulder region (ICD-9-CM 726.10) Active Condition [facility] Encephalopathy Active Condition [facility] Gastroesophageal reflux disease Active Condition [facility] History of hepatitis C Active Condition [facility] HT - Hypertension (SNOMED CT 44793699) Active Condition [facility] Impotence of organic origin (ICD-9-CM 607.84) Active Condition [facility] Noncompliance with Treatment (ICD-9-CM V15.81) Active Condition [facility] Occlusion and Stenosis of Carotid Artery, without Cerebral Infarction (ICD-9-CM Active Condition [facility] Persistent alcohol abuse (SNOMED CT 277847516) Active Condition [facility] Problems resulting from Gambling and Betting (ICD-9-CM V69.3) [address] [facility] Seizure disorder Active Condition [facility] Syncope (SNOMED CT 490719833) Active Condition [facility] Tobacco use Active Condition [facility] Tobacco Use * (ICD-9-CM 305.1) Active Condition [facility] Vitamin D deficiency Active Condition [facility] Wernicke-Korsakoff syndrome Active Condition [facility] Immunizations Combined list of available immunizations from the Department of Defense and Veterans Affairs facilities. Immunization Series Date Given Administered By Site Reaction Lot Number CVX Code Drug Multi Share Program Coordinator Status Comments Source PNEUMOCOCCAL POLYSACCHARID E PPV23 2017 33 complet ed [facility] INFLUENZA, INJECTABLE, QUADRIVALENT, PRESERVATIVE FREE 2017 150 complet ed [facility] TDAP 2011 115 complet ed Left Deltoid [facility] N HEP A-HEP B 2011 104 complet ed [facility] HEP A-HEP B 2011 104 complet ed [facility] N HEP A-HEP B 2010 104 complet ed [facility] N INFLUENZA, UNSPECIFIED FORMULATION 2010 88 complet ed [facility] Encounters Combined list of: 1) Encounters from Department of Veterans Affairs facilities going backup to the last 18 months, not all [place] inpatient encounters are included; 2) Encounters from the Department of [facility] facilities going backup to 280 months. Location Location Details Encounter Type Encounter Number Reason For Visit Attending Provider ADM Date DC Date Status Disposition Source [facility] Outpatient Encounter [id number] 04/26 [facility] Outpatient Encounter [id number] 09/08 [facility] Social History Combined list of available smoking, tobacco, and other social history from Department of Defense and Veterans Affairs facilities. Social History Type Response Date Comment Sourc e Tobacco smoking status NHIS VA-TOBACCO USE MED NO 01/10/2020 [facility] History of tobacco use VA-TOBACCO USE ADVICE 01/10/2020 [facility] History of tobacco use QUIT TOBACCO IN T HE LAST 12 MONTHS 07/08/2018 [facility] History of tobacco use ORYX ADMIT TOBACC O SCREEN YES 07/04/2018 [facility] History of tobacco use CURRENT TOBACCO USER 05/10/2018 [facility] History of tobacco use CURRENT TOBACCO USER 05/02/2018 [facility] History of tobacco use CURRENT TOBACCO USER 02/10/2017 [facility] History of tobacco use CURRENT TOBACCO USER 02/05/2017 [facility] History of tobacco use CURRENT TOBACCO USER 01/21/2015 [facility] History of tobacco use TOBACCO OFFERRED PT MEDS (PROVIDER) 03/31/2012 [facility] History of tobacco use TOBACCO OFFERRED PT MEDS (PROVIDER) 07/13/2011 [facility] History of tobacco use CURRENT TOBACCO USER 06/26/2011 [facility] History of tobacco use CURRENT TOBACCO USER 06/23/2011 [facility] History of tobacco use CURRENT TOBACCO USER 06/22/2011 [facility] Advance Directives List of completed, amended, or rescinded Advance Directives on record at Department of Veterans Affairs facilities. An actual copy of the Directive is not included. Date Advance Directive Provider Source 07/20/2018 CLINICAL WARNING [facility]
--- OUTSIDE RECORDS SUMMARY | 2024-11-13 17:40 | XMS_ITS | Clinical Summary ---
Author Organization [facility] [employer] Address [address] [place] [address] Care Team Providers Care Senior Data Quality Analyst Name Role Phone Unavailable Primary Care Provider Unavailabl e Source Comments [facility],non-owned Affiliates and Associated Physician Practices is amultiple site organization consisting of ambulatory clinics and hospital sitesin [place], [place], [place] and [place]. This disclosure is being madepursuant to the Care Everywhere program and may not contain all information available regarding this patient. Last updated 18.[facility] [employer] Allergies No known active allergies Medications * [...] Comments Blood Pressure 108/74 09/01/2021 10:00 AM MOLDER MACHINE TENDER Pulse 65 09/01/2021 10:00 AM MOLDER MACHINE TENDER Temperature 36.7 C (98.1 F) 09/01/2021 10:00 AM MOLDER MACHINE TENDER Respiratory Rate 18 12/07/2017 8:00 AM CDT Oxygen Saturation 99% 09/01/2021 10:00 AM MOLDER MACHINE TENDER Inhaled Oxygen Concentration - - Weight 60.8 kg (134 lb) 09/01/2021 10:00 AM MOLDER MACHINE TENDER Height 170.2 cm (5' 7 ) 09/01/2021 10:00 AM MOLDER MACHINE TENDER Body Mass Index 20.99 09/01/2021 10:00 AM MOLDER MACHINE TENDER Plan of Treatment Health Maintenance Due [...]
--- OUTSIDE RECORDS SUMMARY | 2024-11-13 17:40 | XMS_ITS ---
Author Organization [facility] Care Team Providers Care Cashier Tube Room Name Role Phone Tj, Mateo Unavailable Unavailable Ampadu, Yaw Unavailable Unavailable Ampadu, Valeria Unavailable Unavailable Allergies and adverse reactions No Known Allergies Care Team Name Role Address Phone Organization Dates [facility] [address] [place], [address], [place] (Office): : [facility] 02/24/2021 - 12/01/2021 Mateo Habib Attending Physician [facility] [place], [address], [place] (Office): [facility] 02/24/2021 - 12/01/2021 Valeria Perrin Attending Physician [address], [place], [facility], [place] (Office): : [facility] 02/24/2021 - 12/01/2021 Immunizations Immunization Status Vaccine Details Vaccine Code CodeSystem Date Notes Influenza completed Influenza, high-dose, split virus, quadrivalent, injectable, preservative free lotNumber: [id number] expiry: 01/29/2021 Mfg: Flucelvax Quadrivalent Given 0.5 ml Left Deltoid intradermally 197 CVX created date: 05/16/2020 consent date: 05/16/2020 administer ed date: 05/16/2020 Influenza completed Influenza, high-dose, split virus, quadrivalent, injectable, preservative free lotNumber: [id number] expiry: 02/20/2020 Mfg: AFLURIA QUADRIVALANT Given 0.5 ml Left Deltoid intramuscularly 197 CVX created date: 06/09/2019 consent date: 06/09/2019 administer ed date: 06/09/2019 Influenza completed Influenza, high-dose, split virus, quadrivalent, injectable, preservative free lotNumber: [id number] expiry: 02/19/2019 Mfg: Sanofi Pasteur Given 0.5 ml Left Deltoid intramuscularly 197 CVX created date: 09/29/2018 consent date: 09/29/2018 administer ed date: 09/29/2018 Educated by [facility] on 09/29/2018 TB 1 Step Mantoux (PPD) completed tuberculin skin test; unspecified formulation lotNumber: [id number] expiry: 10/20/2021 Mfg: aplisol Given 0.1 ml intradermally 98 CVX created date: 07/30/2021 consent date: 07/30/2021 administer ed date: 07/30/2021 TB 1 Step Mantoux (PPD) completed tuberculin skin test; unspecified formulation lotNumber: [id number] expiry: 01/11/2022 Mfg: Tubersol Given 0.1 ml Right Forearm intradermally 98 CVX created date: 03/05/2020 consent date: 03/05/2020 administer ed date: 03/05/2020 TB 1 Step Mantoux (PPD) completed tuberculin skin test; unspecified formulation lotNumber: [id number] expiry: 09/23/2019 Mfg: Par Pahrmaceutical Given 0.1 ml Right Forearm intradermally 98 CVX created date: 12/09/2018 consent date: 12/09/2018 administer ed date: 12/09/2018 yearly TB DPT completed created date: 09/13/2018 administer ed date: 08/03/2018 per h and p from ct iniguez on 08/03/18 no date specified SARS-COV-2 (COVID-19) completed SARS-COV-2 (COVID-19) vaccine, mRNA, spike protein, LNP, preservative free, 25 mcg/0.25 mL dose lotNumber: [id number] expiry: 12/21/2020 Mfg: pfizer Given 0.3 ml Right Deltoid intramuscularly Step 2 of Multi-step with next step required 311 CVX created date: 10/25/2020 consent date: 10/25/2020 administer ed date: 09/26/2020 SARS-COV-2 (COVID-19) completed SARS-COV-2 (COVID-19) vaccine, mRNA, spike protein, LNP, preservative free, 25 mcg/0.25 mL dose lotNumber: [id number] expiry: 11/10/2020 Mfg: pfizer Given 0.3 ml Left Deltoid intramuscularly Step 1 of Multi-step with next step required 311 CVX created date: 10/25/2020 consent date: 10/25/2020 administer ed date: 09/05/2020 COVID-19 Pfizer Booster completed SARS-COV-2 (COVID-19) vaccine, mRNA, spike protein, LNP, preservative free, 30 mcg/0.3mL dose lotNumber: [id number] expiry: 11/07/2021 Mfg: pfizer Given 0.3 ml [...] FOR ASSISTANCE WITH PERSONAL CARE 07/23/[id number] active 2 WEAKNESS 07/23/[address] active 3 NEED FOR ASSISTANCE WITH PERSONAL CARE 04/11/20 21 07/23/[id number] completed 4 WEAKNESS 04/11/20 21 07/23/[address] completed 5 COGNITIVE COMMUNICATION DEFICIT 07/16/20 20 07/23/[address] completed 6 OTHER SYMBOLIC DYSFUNCTIONS 07/16/20 20 07/23/[address] completed 7 DIFFICULTY IN WALKING, NOT ELSEWHERE CLASSIFIED 10/27/19 20 05/16/[address] completed 8 UNSTEADINESS ON FEET 10/27/19 20 05/16/[address] completed 9 WEAKNESS 10/27/19 20 05/16/[address] completed 10 UNSPECIFIED PSYCHOSIS NOT DUE TO A SUBSTANCE OR KNOWN PHYSIOLOGICAL CONDITION 09/25/[address] active 11 ALCOHOL USE, UNSPECIFIED WITH ALCOHOL-INDUCED PSYCHOTIC DISORDER, UNSPECIFIED 08/02/[address] active 12 MAJOR DEPRESSIVE DISORDER, RECURRENT, UNSPECIFIED 06/15/[address] active 13 CONTRACTURE OF MUSCLE, LEFT SHOULDER 05/01/20 19 08/17/[address] completed 14 CONTRACTURE OF MUSCLE, RIGHT SHOULDER 05/01/20 19 08/17/[address] completed 15 CONTRACTURE, LEFT KNEE 05/01/20 19 08/17/[address] completed 16 WEAKNESS 05/01/20 19 08/17/[address] completed 17 OTHER ABNORMALITIES OF GAIT AND MOBILITY 02/03/20 19 08/17/[address] completed 18 OTHER LACK OF COORDINATION 02/03/20 19 08/17/[address] completed 19 UNSTEADINESS ON FEET 02/03/20 19 08/17/[address] completed 20 UNSPECIFIED BACTERIAL PNEUMONIA 09/08/19 19 06/26/[address] completed 21 ALCOHOL DEPENDENCE, IN REMISSION 08/03/[address] active 22 COGNITIVE COMMUNICATION DEFICIT 08/03/20 18 08/17/[address] completed 23 GASTRO-ESOPHAGEAL REFLUX DISEASE WITHOUT ESOPHAGITIS 08/03/[address] active 24 NICOTINE DEPENDENCE, UNSPECIFIED, UNCOMPLICATED 08/03/[address] active 25 OTHER SEIZURES 08/03/[address] active 26 VITAMIN D DEFICIENCY, UNSPECIFIED 08/03/[address] active 27 WERNICKE'S ENCEPHALOPATHY 08/03/[address] active Reason for Referral No Reasons for Referral Entered Social History Social History Observation Description Start Date End Date Code Code System Current Smoking Status Tobacco smoking consumption unknown 261492706 SNOMED CT Sex Assigned At Male 1955 62861-4 [facility] Vital Signs Code Code System Vitals Name Values and Units Timing Information 11519-7 [facility] Pain Level Value=0.0 11/28/2021 45455-5 [facility] Weight Pjgyq=255.0 Units=Lbs 01/2022 9279-1 [facility] Respiratory Rate Value=20.0 Units=/m in 11/26/2021 8462-4 [facility] Blood Pressure-Diastolic Value=80 Un its=mmHg 11/26/2021 8480-6 [facility] Blood Pressure-Systolic Lhgoe=672 Un its=mmHg 11/26/2021 8310-5 [facility] Body Temperature Value=97.0 Units= F 11/26/2021 8867-4 [facility] Heart rate Value=80.0 Units=/min 01/2022 64992-7 [facility] O2 % dC Oximetry Value=98.0 Units= % 11/26/2021 2339-0 [facility] Blood Sugar Edjbp=981.0 Units=mg/dL 08/07/2021 8302-2 [facility] Height Value=67.0 Units=Inches 09/08/2018
--- OUTSIDE RECORDS SUMMARY | 2024-11-13 17:41 | XMS_ITS | Encounter Summary ---
Author Name [facility] Organization [facility] [place] Address [address] [place] [id number] Care Team Providers Care Cotton Feeder Name Role Phone MARGUERITE MARAVILLA Primary Care Provider Unavailabl e Selected Encounter This section includes the information on record at [place] for the Encounter. Date/Time Encounter Type Encounter Description Reason Pro vider Source Sep 08, 2024 01:15 PM Outpatient Encounter GENERAL INTERNAL MEDICINE [facility] Encounter Template Text not used by [place] Social History: Smoking Status (Most current) and Tobacco Use (All prior to encounter date) This section includes the most current, and the historical, smoking and tobacco- related health factors from the [place] facility where the Encounter took place. Current Smoking Status This section includes the most current smoking, or tobacco-related health factor, from the [place] facility where the Encounter took place. Date/Time Current Smoking Status Comment Facil ity January 10, 2020 11:18 AM VA-TOBACCO USE MED NO [facility] Tobacco Use History This section includes a history of the smoking, or tobacco-related health factors, that were collected on or before the date of the Encounter. The data comes from the [place] facility where the Encounter took place. Date/Time Smoking Status/Tobacco Use Comment F acility January 10, 2020 11:18 AM VA-TOBACCO USE > 1 5 LESS THAN 30 YEARS [facility] January 10, 2020 11:18 AM VA-TOBACCO USE ADVICE [facility] January 10, 2020 11:18 AM VA-TOBACCO USE PREVENTIVE MEDICINE PHYSICIAN NO [facility] January 10, 2020 11:18 AM VA-TOBACCO USE MED NO [facility] January 10, 2020 11:18 AM VA-TOBACCO USER EVERY DAY [facility] Jul 04, 2018 11:55 AM ORYX ADMIT TOBACCO SCREEN YES [facility] Jul 04, 2018 11:55 AM ORYX ADMIT TOBACCO USE CIGS GR 5D [facility] Jul 04, 2018 11:55 AM ORYX DAILY TOBACCO PREVENTIVE MEDICINE PHYSICIAN REFUSED [facility] Jul 04, 2018 11:55 AM [facility]YX DAILY TOBACCO MEDS ORDERED [facility] Feb 05, 2017 04:16 PM CURRENT TOBACCO USER [facility] Jan 21, 2015 11:42 AM CURRENT TOBACCO USER [facility] Jan 21, 2015 11:42 AM TOBACCO MEDS OFFER ED BUT DECLINED [facility] Mar 31, 2012 12:00 PM CURRENT TOBACCO USER [facility] Mar 31, 2012 12:00 PM TOBACCO OFFERRED P T MEDS (PROVIDER) [facility] Advance Directives: All historical and current Section Date Range: From patient's date of to the date document was created. This section includes ALL of a patient's completed or amended [place] Advance and Rescinded Directives. The entries below indicate that a directive exists for the patient, but an actual copy is not included with this document. The data comes from all [facility]. Date Advance Directives Provider Source Jul 20, 2018 CLINICAL WARNING [facility] Encounter Notes: All associated encounter notes This section contains the clinical notes associated to the Encounter. Date/Time Encounter Note(s) Provider Source Sep 03, 2024 01:15 PM NONVA NOTE: LOCAL TITLE: [facility] PRESENTING CARE COORD PLAN STANDARD TITLE: NONVA NOTE DATE OF NOTE: SEP 03, 2024@13:15 ENTRY DATE: SEP 08, 2024@13:15:22 AUTHOR: MELVIN COVARRUBIAS COSIGNER: URGENCY: STATUS: COMPLETED Emergency Notification Intake Date Presenting to the Facility: Aug Method of Contact: Notified from ECR worklist Notification ID: [id number] [facility] Referral #: [id number] Clinical Review [facility] Name: Hospital: [facility] Address: [address] City: [place] State: [place] Zip Code: [address] Community Facility Point of Contact: Name: [facility] Chief complaint: fall injury Primary Diagnosis: Disposition Discharged Date of discharge: Aug Discharge to home Records req'd by fax. /es/ MELVIN COVARRUBIAS [employer] EXPEDITER SERVICE ORDER Signed: 09/08/2024 13:24 MELVIN COVARRUBIAS [facility]
--- OUTSIDE RECORDS SUMMARY | 2024-11-13 17:41 | XMS_ITS | CONTINUITY OF CARE DOCUMENT ---
Author Name mahin stockton Address Unknown Organization [facility] Address [address] [place] [address] Phone [phone] Care Team Providers Care Wordpress Developer Name Role Phone Flex Leone MD Unavailable DAYNE CALDERON, ABIEL Unavailable INSURANCE PROVIDERS Payer name Policy type / Coverage type Kenny red democrat [employer] [facility] Medicaid 3 [id number]
[2024-11-13 18:05] VITALS: BP 126/76; PULSE 60; RESP 18; O2SAT 100
== END 2024-11-13 18:07 ==
PROVIDERS: Registered Nurse; Emergency Provider Emergency Medicine; PCP Internal Medicine
DX: R41.82 Altered mental status, unspecified (principal); I10 Essential (primary) hypertension
CPT/HCPCS: 36415; 70450; 71046; 71250; 74176; 80053; 81003; 82948; 84443; 84484; 85025; 85610; 85730; 93005; 99284